=== PATIENT | female | born 1975 | race Caucasian/White ===

== ENCOUNTER 2018-11-26 08:30 | Outpatient (REF) | payer BC, SELFPAY ==
[2018-11-26 12:57] LABS: ALT 23 U/L (14-59); AST 19 U/L (15-37); Albumin 3.3 g/dL (3.4-5.0); Alkaline Phosphatase 72 U/L (46-116); Anion Gap 9.8 mmol/L (3-11); BUN 10 mg/dL (7-18); Bilirubin, Total 0.5 mg/dL (0.2-1.0); CO2 25.2 mmol/L (21.0-32.0); CREATININE 0.76 mg/dL (0.55-1.02); Calcium 8.4 mg/dL (8.5-10.1); Calculated LDL 149 mg/dL; Chloride 104 mmol/L (98-107); Cholesterol 212 mg/dL (50-200); Glucose 109 mg/dL (70-100); HDL Cholesterol 46 mg/dL (40-60); Potassium 4.1 mmol/L (3.5-5.1); Sodium 139 mmol/L (136-145); Total Protein 6.9 g/dL (6.4-8.2); Triglyceride 86 mg/dL (30-150)
== END 2018-11-26 08:50 ==
LOC: NCHCN 08:30
PROVIDERS: PCP Family Medicine; Visit Provider Family Medicine
DX: Z00.00 Encounter for general adult medical examination without abnormal findings (principal); Z13.220 Encounter for screening for lipoid disorders; E66.9 Obesity, unspecified
CPT/HCPCS: 80053; 80061

== ENCOUNTER 2018-12-15 10:17 | Outpatient (REF) | payer BC, SELFPAY ==
--- NOTE | 2018-12-15 09:45 | PAPFT_PTH ---
PATIENT: Jimena Dorsey LOC: [facility] U#:[id number] AGE/SX: 43/F ROOM: RE12/15/[address]: Court Moreno : 1975 BED: DIS: 12/15/2018 SPEC #: [id number] RECD: 12/15/18 12:58 STATUS: HIREN REQ #: [id number] PARISH: 12/15/18 09:[address]: Court Moreno DEPT: [facility] Cytology RECD BY: Elsie Simental ENTERED: 12/15/18 12:58 SP TYPE: PAPFT OTHR DR: Lupis Lee Tissues: 1 - CX/ENDOCX FOR PAP SMEARS Procedures: PAP THIN PREP/[facility] Screening HPV DNA PROBE Comments: [id number]
== END 2018-12-15 10:37 ==
LOC: NCHCN 10:17
PROVIDERS: PCP Family Medicine; Visit Provider Nurse Practitioner Family
DX: Z00.00 Encounter for general adult medical examination without abnormal findings (principal); Z12.4 Encounter for screening for malignant neoplasm of cervix; Z11.51 Encounter for screening for human papillomavirus (HPV)
CPT/HCPCS: 88142; 87624

== ENCOUNTER 2022-04-18 12:49 | Outpatient (REF) | payer BC, SELFPAY ==
[2022-04-18 14:49] LABS: HCT 41.1 % (36.0-46.0); HGB 13.8 g/dL (11.2-15.7); MCH 30.6 pg (27.0-33.0); MCHC 33.6 % (32.0-36.0); MCV 91 fL (80-95); MPV 9.2 fL (8.0-11.0); Platelet Count 424 10^3/uL (130-400); RBC 4.51 10^6/uL (3.93-5.22); RDW 12.4 % (11.7-14.6); RDW-SD 41.4 fL; WBC 6.39 10^3/uL (4.4-10.8)
[2022-04-18 15:05] LABS: ALT 24 U/L (14-59); AST 15 U/L (15-37); Albumin 3.4 g/dL (3.4-5.0); Alkaline Phosphatase 66 U/L (46-116); Anion Gap 8.4 mmol/L (3-11); BUN 12 mg/dL (7-18); Bilirubin, Total 0.3 mg/dL (0.2-1.0); CO2 25.6 mmol/L (21.0-32.0); CREATININE 0.8 mg/dL (0.55-1.02); Calcium 8.9 mg/dL (8.5-10.1); Chloride 104 mmol/L (98-107); Estimated GFR 92.54 (mL/min/1.73m2); Glucose 133 mg/dL (74-106); Sodium 138 mmol/L (136-145); Total Protein 6.8 g/dL (6.4-8.2)
[2022-04-18 15:39] LABS: Hemoglobin A1C 5.5 % (<5.7)
== END 2022-04-18 12:50 | disposition home or self-care (01) ==
LOC: NCHCN 12:49
PROVIDERS: PCP Family Medicine; Visit Provider Nurse Practitioner Family
DX: Z00.00 Encounter for general adult medical examination without abnormal findings (principal); Z13.1 Encounter for screening for diabetes mellitus; Z13.228 Encounter for screening for other metabolic disorders; Z13.0 Encounter for screening for diseases of the blood and blood-forming organs and certain disorders involving the immune mechanism
CPT/HCPCS: 80053; 85027; 83036

== ENCOUNTER 2023-05-06 14:02 | Outpatient (REF) | payer BC, SELFPAY ==
--- NOTE | 2023-05-06 10:45 | PAPFT_PTH ---
PATIENT: Jimena Dorsey LOC: [facility] U#:[id number] AGE/SX: 48/F ROOM: RE05/06/[address]: Court Moreno : 1975 BED: DIS: 05/06/2023 SPEC #: [id number] RECD: 05/06/23 17:33 STATUS: HIREN REQ #: [id number] PARISH: 05/06/23 10:[address]: Court Moreno DEPT: [facility] Cytology RECD BY: Elsie Simental ENTERED: 05/06/23 17:33 SP TYPE: PAPFT OTHR DR: Lupis Lee Tissues: 1 - CX/ENDOCX FOR PAP SMEARS Procedures: PAP THIN PREP/[facility] Screening HPV DNA PROBE Comments: [id number]
[2023-05-06 14:28] LABS: HGB 13.9 g/dL (11.2-15.7); MCH 30.5 pg (27.0-33.0); MCHC 33.1 % (32.0-36.0); MCV 92 fL (80-95); MPV 9.2 fL (8.0-11.0); Platelet Count 389 10^3/uL (130-400); RBC 4.55 10^6/uL (3.93-5.22); RDW 12.3 % (11.7-14.6); RDW-SD 42.1 fL; WBC 8.38 10^3/uL (4.4-10.8)
[2023-05-06 15:29] LABS: ALT 35 U/L (14-59); AST 27 U/L (15-37); Albumin 3.4 g/dL (3.4-5.0); Alkaline Phosphatase 69 U/L (46-116); Anion Gap 12.8 mmol/L (3-11); BUN 10 mg/dL (7-18); Bilirubin, Total 0.2 mg/dL (0.2-1.0); CO2 23.2 mmol/L (21.0-32.0); CREATININE 0.7 mg/dL (0.55-1.02); Calculated LDL 146 mg/dL (<100); Chloride 104 mmol/L (98-107); Cholesterol 226 mg/dL (<200); Estimated GFR 107.95 (mL/min/1.73m2); Glucose 137 mg/dL (74-106); HDL Cholesterol 55 mg/dL (40-60); Potassium 4.1 mmol/L (3.5-5.1); Sodium 140 mmol/L (136-145); Triglyceride 125 mg/dL (<150)
== END 2023-05-06 14:03 | disposition home or self-care (01) ==
LOC: NCHCN 14:02
PROVIDERS: PCP Family Medicine; Visit Provider Nurse Practitioner Family
DX: Z01.419 Encounter for gynecological examination (general) (routine) without abnormal findings (principal); Z00.00 Encounter for general adult medical examination without abnormal findings
CPT/HCPCS: 80053; 80061; 85027; 88142; 87624

== ENCOUNTER → 2023-05-08 00:23 | Outpatient (CLI) | payer BC, SELFPAY ==
--- NOTE | 2023-05-08 | DI.MAMMO_ITS ---
Exam(s) MAMMO SCREENING EXAM: MAMMO SCREENING CLINICAL HISTORY: SCREENING MAMMO FOR BREAST CANCER Z12.39. TECHNIQUE: Bilateral full field digital CC and MLO mammographic images were obtained with 3D tomosyn thesis and utilizing computer aided detection (CAD). COMPARISON: None. This is a baseline mammogram on this 48-year-old FINDINGS: There has been no significant change in the appearance and distribution of the fibroglandular tissue. There are no spiculated masses nor malignant appearing microcalcification groups. There is no significant architectural distortion nor skin thickening-retraction. IMPRESSION: No radiographic evidence of malignancy. BI-RADS Category 1 - Negative Breast Density - Category B - Scattered areas of fibroglandular density Breast density Category C or D implies that the patient has dense breast tissue. Dense breast tissue can make it harder to find cancer on a mammogram. Dense breast tissue is also associated with an incr eased risk of breast cancer. This information about the result of the mammogram report was provided to the patient to raise their awareness. Use this report when you speak with the patient about their risks for breast cancer, which includes their family history. At that time, you may recommend additional screening tests (Ultrasoun d or MRI) as these tests may add significant information. A negative radiographic report should not delay biopsy if a dominant or clinically suspicious mass is present. Up to ten percent of cancers are not identified on mammography. A negative report may reinforce clinical impression. Adenosis and dense breasts may obscure an underlying neoplasm. False positive reports average 6 to 10%. Patient will receive a letter notifying them of these results.
== END ==
PROVIDERS: PCP Family Medicine; Visit Provider Nurse Practitioner Family
DX: Z12.31 Encounter for screening mammogram for malignant neoplasm of breast (principal)
CPT/HCPCS: 77063; 77067

== ENCOUNTER 2024-05-11 14:02 | Outpatient (REF) | payer OTHER, SELFPAY ==
[2024-05-11 21:00] LABS: HCT 44.2 % (36.0-46.0); HGB 14.3 g/dL (11.2-15.7); MCH 29.7 pg (27.0-33.0); MCHC 32.4 % (32.0-36.0); MCV 92 fL (80-95); Platelet Count 405 10^3/uL (130-400); RBC 4.81 10^6/uL (3.93-5.22); RDW-SD 40.4 fL; WBC 7.89 10^3/uL (4.4-10.8)
[2024-05-11 21:13] LABS: Hemoglobin A1C 5.9 % (<5.7)
[2024-05-11 21:15] LABS: ALT 28 U/L (14-59); AST 17 U/L (15-37); Albumin 3.6 g/dL (3.4-5.0); Alkaline Phosphatase 103 U/L (46-116); BUN 14 mg/dL (7-18); Bilirubin, Total 0.3 mg/dL (0.2-1.0); CREATININE 0.7 mg/dL (0.55-1.02); Calcium 9.3 mg/dL (8.5-10.1); Chloride 104 mmol/L (98-107); Estimated GFR 107.28 (mL/min/1.73m2); Glucose 108 mg/dL (74-106); Sodium 138 mmol/L (136-145); Total Protein 7.3 g/dL (6.4-8.2)
== END 2024-05-11 14:03 | disposition home or self-care (01) ==
LOC: NCHCN 14:02
PROVIDERS: PCP Family Medicine; Visit Provider Nurse Practitioner Family
DX: E66.9 Obesity, unspecified (principal); Z00.00 Encounter for general adult medical examination without abnormal findings
CPT/HCPCS: 80053; 85027; 83036

== ENCOUNTER 2024-06-02 00:28 | Outpatient (CLI) | payer OTHER, SELFPAY ==
--- NOTE | 2024-06-02 | DI.MAMMO_ITS ---
Exam(s) MAMMO SCREENING EXAM: MAMMO SCREENING CLINICAL HISTORY: Screening, Z12.31. TECHNIQUE: Bilateral full field digital CC and MLO mammographic images were obtained with 3D tomosyn thesis and utilizing computer aided detection (CAD). COMPARISON: Prior baseline mammogram of April 2023 was reviewed FINDINGS: There has been no significant change in the appearance and distribution of the fibroglandular tissue. There are no new spiculated masses nor malignant appearing microcalcification groups. There is no significant architectural distortion nor skin thickening-retraction. IMPRESSION: No radiographic evidence of malignancy. BI-RADS Category 1 - Negative Breast Density - Category C - Heterogeneously dense Breast density Category C or D implies that the patient has dense breast tissue. Dense breast tissue can make it harder to find cancer on a mammogram. Dense breast tissue is also associated with an incr eased risk of breast cancer. This information about the result of the mammogram report was provided to the patient to raise their awareness. Use this report when you speak with the patient about their risks for breast cancer, which includes their family history. At that time, you may recommend additional screening tests (Ultrasoun d or MRI) as these tests may add significant information. A negative radiographic report should not delay biopsy if a dominant or clinically suspicious mass is present. Up to ten percent of cancers are not identified on mammography. A negative report may reinforce clinical impression. Adenosis and dense breasts may obscure an underlying neoplasm. False positive reports average 6 to 10%. Patient will receive a letter notifying them of these results.
== END 2024-06-02 00:48 ==
LOC: DI 00:28
PROVIDERS: PCP Family Medicine; Visit Provider Nurse Practitioner Family
DX: Z12.31 Encounter for screening mammogram for malignant neoplasm of breast (principal); R92.333 Mammographic heterogeneous density, bilateral breasts
CPT/HCPCS: 77063; 77067